=== PATIENT | male | born 1935 | race Caucasian/White ===

== ENCOUNTER 2020-01-19 15:00 | Emergency (ER) | payer MEDICAID, MEDICARE, OTHER ==
[~2020-01-19] VITALS: Ht 182.9 cm; Wt 90.8 kg
[2020-01-19 15:06] VITALS: BP 151/64
--- NOTE | 2020-01-19 16:01 | NUR ---
[employer]: PT TO ROOM FROM LOBBY
== END 2020-01-19 18:10 | disposition home or self-care (01) ==
LOC: ED 17:47
DX: S60.221A Contusion of right hand, initial encounter (principal); W18.30XA Fall on same level, unspecified, initial encounter; Y93.89 Activity, other specified; Y92.009 Unspecified place in unspecified non-institutional (private) residence as the place of occurrence of the external cause; Y99.8 Other external cause status
CPT/HCPCS: 99284